=== PATIENT | female | born 1945 | race Caucasian/White ===

== ENCOUNTER 2019-12-07 12:45 | Emergency (ER) | payer MEDICARE ==
[~2019-12-07] VITALS: Ht 162.6 cm; Wt 81.8 kg
[2019-12-07 16:26] VITALS: BP 142/74
== END 2019-12-07 16:30 | disposition home or self-care (01) ==
LOC: ER 12:46
DX: R07.89 Other chest pain (principal); F12.90 Cannabis use, unspecified, uncomplicated; R51 Headache; Z98.890 Other specified postprocedural states; W19.XXXA Unspecified fall, initial encounter; Y93.89 Activity, other specified; Y92.89 Other specified places as the place of occurrence of the external cause; Y99.8 Other external cause status
CPT/HCPCS: 70450; 71120; 99284

== ENCOUNTER 2021-05-20 12:55 | Emergency (ER) | payer MEDICARE ==
[~2021-05-20] VITALS: Ht 162.6 cm; Wt 79.0 kg
[~2021-05-20 12:55] MED LIST: LIDOcaine 1% 30ml preserv. free vial ONE
[2021-05-20] MEDS ORDERED: acetaminophen 325mg tablet PO ONE (15:30)
[2021-05-20] MEDS ORDERED: ketorolac trometh. 30mg/ml inj. IV ONE (15:30)
[2021-05-20 15:36] LABS: BASOPHILS % (AUTO) 0.3 % (0-1); EOSINOPHILS % (AUTO) 0.3 % (0-6); HEMATOCRIT 38.8 % (35.0-45.0); LYMPHOCYTES # (AUTO) 0.8 X10'3 (1.1-4.8); MEAN CORPUSCULAR HEMOGLOBIN 30.6 PG (27.0-31.0); MEAN CORPUSCULAR HGB CONC 33.5 g/dL (33.0-36.5); MEAN CORPUSCULAR VOLUME 91.3 FL (78-98); MEAN PLATELET VOLUME 6.9 FL (7.4-10.4); MONOCYTES # (AUTO) 0.7 X10'3 (0-0.9); MONOCYTES % (AUTO) 5.1 % (2-12); NEUTROPHILS # (AUTO) 12.4 X10'3 (1.8-7.7); NEUTROPHILS % (AUTO) 88.3 % (42-75); PLATELET COUNT 218 X10'3 (140-440); RED BLOOD COUNT 4.24 X10'6 (4.20-5.60); RED CELL DISTRIBUTION WIDTH 15.7 % (11.5-14.5); WHITE BLOOD COUNT 14.1 X10'3 (4.5-11.0)
[2021-05-20 15:47] LABS: ALANINE AMINOTRANSFERASE 24 U/L (12-78); ALBUMIN 3.8 G/DL (3.4-5.0); ALKALINE PHOSPHATASE 90 IU/L (46-116); ANION GAP 11 (8-16); ASPARTATE AMINO TRANSFERASE 20 U/L (10-37); BILIRUBIN,TOTAL 0.5 MG/DL (0.1-1.0); BLOOD UREA NITROGEN 11 MG/DL (7-18); BUN/CREATININE RATIO 11.1 (6.6-38.0); CALCIUM 9.4 MG/DL (8.5-10.1); CHLORIDE 106 MMOL/L (99-107); CREATININE 0.99 MG/DL (0.40-0.90); GLUCOSE 155 MG/DL (70-104); POTASSIUM 3.8 MMOL/L (3.5-5.1); SODIUM 142 MMOL/L (135-145); TOTAL CARBON DIOXIDE 24.7 MMOL/L (24-32); TOTAL PROTEIN 7.6 G/DL (6.4-8.2); eGFR 55 ML/MIN
[2021-05-20] MEDS ORDERED: ondansetron/PF 4mg/2ml inj IV ONE (16:20)
[2021-05-20] MEDS ORDERED: fentaNYL/PF 50MCG/1 ML 2ML syringe IV ONE (16:50)
[2021-05-20] MEDS: propofol 10mg/ml 20ml vial IV ONE ×2 (17:13→17:14)
[2021-05-20] MEDS ORDERED: HYDR-3965 PO (18:08)
[2021-05-20 18:10] VITALS: BP 134/56
[2021-05-20] MEDS ORDERED: HYDROcodone/acetaminophen 10/325mg tab PO ONE (18:40)
== END 2021-05-20 18:59 | disposition home or self-care (01) ==
LOC: ER 12:55
DX: S42.291A Other displaced fracture of upper end of right humerus, initial encounter for closed fracture (principal); M25.511 Pain in right shoulder; F12.90 Cannabis use, unspecified, uncomplicated; Z98.890 Other specified postprocedural states; Z79.899 Other long term (current) drug therapy; W00.0XXA Fall on same level due to ice and snow, initial encounter; Y93.89 Activity, other specified; Y92.89 Other specified places as the place of occurrence of the external cause; Y99.8 Other external cause status
CPT/HCPCS: 24505; 36415; 73020; 73060; 80053; 83735; 84484; 85025; 93005; 96374; 96375; 99152; 99285; J1885; J2405; J2704; J3010; J3490; 23650

== ENCOUNTER 2023-04-15 11:51 | Emergency (ER) | payer MEDICARE ==
[~2023-04-15] VITALS: Ht 162.6 cm; Wt 83.5 kg
[~2023-04-15 11:51] MED LIST changes: +ALLO100T PO; +ATOR40TA PO; +CITA-119 PO; +EMPA10TA PO; -LIDOcaine 1% 30ml preserv. free vial ONE; +MULT-1085 PO; +SYN0.088T PO; +VITA-268 PO
[2023-04-15 12:19] VITALS: BP 126/96; PULSE 69; O2SAT 95
[2023-04-15 13:20] VITALS: RESP 15
[2023-04-15 18:13] VITALS: TEMP 97.7
== END 2023-04-15 18:14 | disposition home or self-care (01) ==
LOC: ER 11:51
DX: S00.83XA Contusion of other part of head, initial encounter (principal); F12.90 Cannabis use, unspecified, uncomplicated; Z79.899 Other long term (current) drug therapy; W01.10XA Fall on same level from slipping, tripping and stumbling with subsequent striking against unspecified object, initial encounter; Y93.89 Activity, other specified; Y92.89 Other specified places as the place of occurrence of the external cause; Y99.8 Other external cause status
CPT/HCPCS: 70450; 99284

== ENCOUNTER 2023-04-19 10:04 | Emergency (ER) | payer MEDICARE ==
[~2023-04-19] VITALS: Ht 162.6 cm; Wt 79.5 kg
[2023-04-19 10:08] VITALS: TEMP 97.7
--- NOTE | 2023-04-19 10:30 | NUR ---
Family at bedside. Patient resting comfortably.
--- NOTE | 2023-04-19 10:50 | NUR ---
Pt gone for test.
--- NOTE | 2023-04-19 11:23 | NUR ---
Pt back in room.
--- NOTE | 2023-04-19 11:30 | NUR ---
PT IN PAIN. SPOKE WITH . STATED HE WILL PUT IN ORDERS FOR PAIN MEDICINE.
[2023-04-19 12:23] VITALS: BP 179/82; PULSE 58; O2SAT 95
--- NOTE | 2023-04-19 12:24 | NUR ---
NO ORDERS PLACED FOR PAIN MEDICINE. SPOKE WITH MD AGAIN. MD TO PLACE ORDERS.
[2023-04-19] MEDS ORDERED: HYDROcodone/acetaminophen 5mg/325mg tablet PO ONE (12:25)
[2023-04-19 12:29] VITALS: RESP 16
--- NOTE | 2023-04-19 12:45 | NUR ---
Orders placed for pain meds.
[2023-04-19] MEDS ORDERED: WALKERFR (12:51)
[2023-04-19 13:22] LABS: BASOPHILS # (AUTO) 0.1 X10'3 (0-0.2); BASOPHILS % (AUTO) 0.7 % (0-1); EOSINOPHILS # (AUTO) 0.3 X10'3 (0-0.9); EOSINOPHILS % (AUTO) 2.8 % (0-6); HEMATOCRIT 36.5 % (35.0-45.0); HEMOGLOBIN 12.1 g/dl (12.0-16.0); LYMPHOCYTES # (AUTO) 0.9 X10'3 (1.1-4.8); LYMPHOCYTES % (AUTO) 9.4 % (21-51); MEAN CORPUSCULAR HEMOGLOBIN 30.3 PG (27.0-31.0); MEAN CORPUSCULAR HGB CONC 33.1 g/dL (33.0-36.5); MEAN CORPUSCULAR VOLUME 91.5 FL (78-98); MEAN PLATELET VOLUME 7.3 FL (7.4-10.4); MONOCYTES # (AUTO) 0.6 X10'3 (0-0.9); MONOCYTES % (AUTO) 6.3 % (2-12); NEUTROPHILS # (AUTO) 7.7 X10'3 (1.8-7.7); NEUTROPHILS % (AUTO) 80.8 % (42-75); PLATELET COUNT 188 X10'3 (140-440); RED BLOOD COUNT 3.99 X10'6 (4.20-5.60); RED CELL DISTRIBUTION WIDTH 17.2 % (11.5-14.5); WHITE BLOOD COUNT 9.6 X10'3 (4.5-11.0)
[2023-04-19 13:27] LABS: ALANINE AMINOTRANSFERASE 17 U/L (12-78); ALBUMIN 3.6 G/DL (3.4-5.0); ALKALINE PHOSPHATASE 99 IU/L (46-116); ANION GAP 9 (8-16); ASPARTATE AMINO TRANSFERASE 25 U/L (10-37); BILIRUBIN,TOTAL 0.5 MG/DL (0.1-1.0); BLOOD UREA NITROGEN 10 MG/DL (7-18); BUN/CREATININE RATIO 11.6 (10.0-20.0); CALCIUM 8.7 MG/DL (8.5-10.1); CHLORIDE 105 MMOL/L (99-107); CREATININE 0.86 MG/DL (0.40-0.90); GLUCOSE 94 MG/DL (70-104); POTASSIUM 3.8 MMOL/L (3.5-5.1); SODIUM 138 MMOL/L (135-145); TOTAL CARBON DIOXIDE 23.7 MMOL/L (24-32); TOTAL PROTEIN 7.2 G/DL (6.4-8.2); eCRCL 47 ML/MIN; eGFR 64 ML/MIN
--- NOTE | 2023-04-19 13:33 | NUR ---
Patient resting comfortably on gurney with family at bedside.
[2023-04-19] MEDS ORDERED: NAPR-56 PO (13:39)
== END 2023-04-19 19:44 | disposition home or self-care (01) ==
LOC: ER 10:05
DX: S33.5XXA Sprain of ligaments of lumbar spine, initial encounter (principal); X58.XXXA Exposure to other specified factors, initial encounter; Y93.89 Activity, other specified; Y92.89 Other specified places as the place of occurrence of the external cause; Y99.8 Other external cause status
CPT/HCPCS: 36415; 72131; 74176; 80053; 85025; 99284